=== PATIENT | female | born 1950 | race Two or more races ===

== ENCOUNTER → 2024-09-23 11:26 | Outpatient (REF) | payer OTHER, SELFPAY | LOC: WDC 11:26 | PROVIDERS: ATTENDING PHYSICIAN Student in an Organized Health Care Education/Training Program | DX: Z12.31 Encounter for screening mammogram for malignant neoplasm of breast (principal) | CPT/HCPCS: 77063; 77067 ==

== ENCOUNTER → 2024-11-16 09:22 | Outpatient (REF) | payer OTHER, SELFPAY | LOC: RAD 09:22 | PROVIDERS: ATTENDING PHYSICIAN Student in an Organized Health Care Education/Training Program | DX: Z00.00 Encounter for general adult medical examination without abnormal findings (principal); Z78.0 Asymptomatic menopausal state; M85.89 Other specified disorders of bone density and structure, multiple sites | CPT/HCPCS: 77080 ==

== ENCOUNTER → 2025-09-07 12:59 | Outpatient (REF) | payer OTHER, SELFPAY | LOC: WDC 12:59 | PROVIDERS: ATTENDING PHYSICIAN Student in an Organized Health Care Education/Training Program | DX: Z12.39 Encounter for other screening for malignant neoplasm of breast (principal); Z12.31 Encounter for screening mammogram for malignant neoplasm of breast | CPT/HCPCS: 77063; 77067 ==